=== PATIENT | male | born 1990 | race Caucasian/White ===

== ENCOUNTER 2018-10-07 18:53 | Emergency (ER) | payer OTHER ==
[2018-10-07] MEDS ORDERED: ONDANSETRON 4 MG TAB.RAPDIS PO ONE (19:17)
[2018-10-07] MEDS ORDERED: OXYCODONE-ACETAMINOPHEN 5-325 MG TABLET PO ONE (19:17)
--- NOTE | 2018-10-07 19:30 | ER Document Report ---
ED GI/ - General Chief Complaint: Testicular Pain Stated Complaint: TESTICLE PAIN/SWOLLEN Time Seen by Provider: 10/07/18 19:07 Notes: Patient is a 28-year-old male that comes to the emergency department for chief complaint of left testicular pain. He states pain started suddenly about 2 hours prior to arrival, he noticed it when he stood up from sitting on the couch, he states it is severe with position changes and is an aching pain othe rwise. He denies fever or chills, injury, nausea or vomiting. He denies abdominal pain. He denies history of the same. He denies any surgeries or daily medications. He is sexually active with his significant other, denies discharge or dysuria. TRAVEL OUTSIDE OF THE [place] IN LAST 30 DAYS: No - Related Data Allergies/Adverse Reactions: No Known Allergies Allergy (Unverified 10/07/18 18:56) Past Medical History - General Information source: Patient - Social History Smoking Status: Never Smoker Chew tobacco use (# tins/day): No Drug Abuse: None Lives with: Family Family History: Reviewed & Not Pertinent Patient has suicidal ideation: No Patient has homicidal ideation: No - Medical History Medical History: Negative Renal/ Medical History: Denies: Hx Peritoneal Dialysis Surgical Hx: Negative - Immunizations Immunizations up to date: Yes Hx Diphtheria, Pertussis, Tetanus Vaccination: Yes Review of Systems - Review of Systems Constitutional: No symptoms reported EENT: No symptoms reported Cardiovascular: No symptoms reported Respiratory: No symptoms reported Gastrointestinal: No symptoms reported Genitourinary: See HPI Male Genitourinary: See HPI Musculoskeletal: No symptoms reported Skin: No symptoms reported Hematologic/Lymphatic: No symptoms reported Neurological/Psychological: No symptoms reported Physical Exam - Vital signs Vitals: Temp Pulse Resp BP Pulse Ox 98.4 F 97 16 127/71 H 100 10/07/18 18:59 10/07/18 18:59 10/07/18 18:59 10/07/18 18:59 10/07/18 18:59 - Notes Notes: GENERAL: Alert, interacts well. No acute distress. HEAD: Normocephalic, atraumatic. EYES: Pupils equal, round, and reactive to light. Extraocular movements intact. ENT: Oral mucosa moist, tongue midline. Oropharynx unremarkable. Airway patent. Nares patent, no nasal septal hematoma, TM's intact. NECK: Full range of motion. Supple. Trachea midline. LUNGS: Clear to auscultation bilaterally, no wheezes, rales, or rhonchi. No respiratory distress. HEART: Regular rate and rhythm. No murmur ABDOMEN: Soft, non-tender. Non-distended. Bowel sounds present in all 4 quadra nts. GENITOURINARY: Tenderness over the left epididymis, no swelling to the scrotum, normal cremaster reflexes bilaterally, no hernia noted, no rash noted, no concerning abnormalities noted otherwise. RN Yudith present during exam. EXTREMITIES: Moves all 4 extremities spontaneously. No edema, normal radial and dorsalis pedis pulses bilaterally. No cyanosis. BACK: no cervical, thoracic, lumbar midline tenderness. No saddle anesthesia, normal distal neurovascular exam. NEUROLOGICAL: Alert and oriented x3. Normal speech. [cranial nerves II through XII grossly intact]. PSYCH: Normal affect, normal mood. SKIN: Warm, dry, normal turgor. No rashes or lesions noted. Course - Re-evaluation Re-evalutation: Patient's physical examination is most consistent with epididymitis. No other concerning findings. Urinalysis obtained and is unremarkable. Ultrasound shows good blood flow bilaterally, insistent with epididymitis on the left side which is consistent with patient's physical examination. I discussed the results with patient. Discussed possible bacterial infection causes versus mechanical causes, etc., after discussion decision was made to treat patient prophylactically with azithromycin and Rocephin, give accommodations for treatment of epididymitis otherwise, discussed follow-up and return precautions. Patient states understanding and agreement. After discussion patient will be contacted tonight if he is positive, otherwise patient will know he was negative. Gonorrhea and Chlamydia testing negative. - Vital Signs Vital signs: Temp Pulse Resp BP Pulse Ox 98.0 F 56 L 15 115/64 98 10/07/18 22:08 10/07/18 22:08 10/07/18 22:08 10/07/18 22:08 10/07/18 22:08 Discharge - Discharge Clinical Impression: Testicular pain, left, Epididymitis Condition: Stable Disposition: HOME, SELF-CARE Additional Instructions: Your ultrasound and workup shows epididymitis. You received initial treatment coverage, complete treatment by taking the anti- inflammatory as prescribed and wearing supportive underwear for the next few days. Symptoms should resolve with time. Follow-up with primary care. Return if you worsen including severe pain, swelling, vomiting, fever, or any other concerning or worsening symptoms. Prescriptions: Naproxen 500 mg PO BID PRN #20 tablet PRN Reason:
[2018-10-07 20:29] LABS: APPEARANCE,URINE CLEAR; BILIRUBIN,URINE NEGATIVE (NEGATIVE); COLOR,URINE YELLOW; GLUCOSE, URINE NEGATIVE (NEGATIVE); KETONES,URINE NEGATIVE (NEGATIVE); LEUKOCYTE ESTERASE,URINE NEGATIVE (NEGATIVE); NITRITE,URINE NEGATIVE (NEGATIVE); PROTEIN,URINE NEGATIVE (NEGATIVE); UROBILINOGEN,URINE NEGATIVE mg/dL (<2.0)
--- NOTE | 2018-10-07 21:04 | RADIOLOGY REPORT (SQ) ---
EXAM DESCRIPTION: US SCROTUM COMPLETED DATE/TME: 10/07/2018 19:15 CLINICAL HISTORY: 28 years, Male, left testicular pain EXAM DESCRIPTION: CLINICAL HISTORY: 28 years Male left testicular pain COMPARISON: None. TECHNIQUE: Real-time, reyna scale sonographic and duplex imaging performed to evaluate the testicles FINDINGS: Right testis measures 43 x 36 x 27 mm, left testis 47 x 31 x 24 mm. Left epididymis is hypervascular and enlarged. Right testicle is normal in size and echogenicity. Normal blood flow to the right testicle. No evidence of intratesticular mass. Left testicle is normal in size and echogenicity. Normal blood flow to the left testicle. No evidence of intratesticular mass. Epididymides are otherwise unremarkable. IMPRESSION: Probable left epididymitis.
[2018-10-07] MEDS ORDERED: LIDOCAINE 1% INJ-PF (10 MG/ML) 30 ML SDV INJ ONE (21:24)
[2018-10-07] MEDS ORDERED: CEFTRIAXONE INJ 250 MG VIAL IM ONE (21:24)
[2018-10-07] MEDS ORDERED: AZITHROMYCIN 250 MG TABLET PO ONE (21:25)
[2018-10-07 21:57] LABS: CHLAM PCR NOT DETECTED (NOT DETECT); GON PCR NOT DETECTED (NOT DETECT)
[2018-10-07 22:11] VITALS: BP 115/64
== END 2018-10-07 22:11 | disposition home or self-care (01) ==
LOC: ER 18:53
DX: N45.1 Epididymitis (principal); N50.812 Left testicular pain
CPT/HCPCS: 99284; 96372; 81001; 87491; 87591; 76870; 93976; S0119; J3490; J0696

== ENCOUNTER 2019-08-23 10:57 | Emergency (ER) | payer OTHER ==
[2019-08-23 11:17] VITALS: BP 125/69
[2019-08-23] MEDS ORDERED: IBUPROFEN 800 MG TABLET PO ONE (11:30)
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
--- NOTE | 2019-08-23 12:03 | RADIOLOGY REPORT (SQ) ---
EXAM DESCRIPTION: ELBOW LEFT OVER 2 VIEWS COMPLETED DATE/TIME: 08/23/2019 11:45 am REASON FOR STUDY: fall, left elbow pain COMPARISON: None. NUMBER OF VIEWS: Four views. TECHNIQUE: AP, lateral, and both oblique radiographic images acquired of the left elbow. LIMITATIONS: None. FINDINGS: MINERALIZATION: Normal. BONES: No acute fracture or dislocation. No worrisome bone lesions. JOINT: No effusion. SOFT TISSUES: No soft tissue swelling. No foreign body. OTHER: No other significant finding. IMPRESSION: NEGATIVE STUDY OF THE LEFT ELBOW. NO RADIOGRAPHIC EVIDENCE OF ACUTE INJURY. TECHNICAL DOCUMENTATION: JOB ID: [id number] [employer]- All Rights Reserved Reading location - IP/workstation name: [email or web address]
--- NOTE | 2019-08-23 12:29 | RADIOLOGY REPORT (SQ) ---
EXAM DESCRIPTION: HAND LEFT 3 VIEWS COMPLETED DATE/TIME: 08/23/2019 12:20 pm REASON FOR STUDY: fall injury COMPARISON: None. EXAM PARAMETERS: NUMBER OF VIEWS: Three views. TECHNIQUE: AP, lateral and oblique radiographic images acquired of the left hand. LIMITATIONS: None. FINDINGS: MINERALIZATION: Normal. BONES: No acute fracture or dislocation. No worrisome bone lesions. JOINTS: No effusions. SOFT TISSUES: No soft tissue swelling. No foreign body. OTHER: No other significant finding. IMPRESSION: NEGATIVE STUDY OF THE LEFT HAND. NO RADIOGRAPHIC EVIDENCE OF ACUTE INJURY. TECHNICAL DOCUMENTATION: JOB ID: [id number] [employer]- All Rights Reserved Reading location - IP/workstation name: [email or web address]
== END 2019-08-23 12:51 | disposition home or self-care (01) ==
LOC: ER 10:57
DX: M25.522 Pain in left elbow (principal); S60.222A Contusion of left hand, initial encounter; M79.642 Pain in left hand; M79.89 Other specified soft tissue disorders; R20.0 Anesthesia of skin; W17.89XA Other fall from one level to another, initial encounter; W22.8XXA Striking against or struck by other objects, initial encounter; Z72.0 Tobacco use

== ENCOUNTER 2019-11-14 11:49 | Emergency (ER) | payer OTHER ==
[2019-11-14] MEDS ORDERED: HYDROCODONE/ACETAMINOPHEN 5-325 MG TABLET PO ONE (13:47)
--- NOTE | 2019-11-14 13:49 | ER Document Report ---
HPI - HPI Patient complains to provider of: Back pain Time Seen by Provider: 11/14/19 13:47 Onset: Other - 4 months Onset/Duration: Worse Pain Level: 3 Context: Patient states that he has had back pain for the past 4 months. Patient states that he has been going through physical therapy for the past 3 weeks. Patient states yesterday that he had sudden onset of weakness in his legs causing him to fall. Patient states he had a similar episode today in which he had low back pain, leg weakness and fell. Patient states that his legs were numb at the time. Patient denies any recent injury. Patient denies any fever. Patient states that he will occasionally have alterations in his urine stream in which it starts and stops. Associated Symptoms: Other - Low back pain. denies: Fever Exacerbated by: Movement Relieved by: Denies Similar symptoms previously: Yes Recently seen / treated by doctor: Yes - ROS ROS below otherwise negative: Yes Systems Reviewed and Negative: Yes All other systems reviewed and negative - CONSTITUTIONAL Constitutional: DENIES: Fever - NEURO Notes: Reports brief weakness to extremities causing a fall x2 episodes - GASTROINTESTINAL Gastrointestinal: DENIES: Nausea, Patient vomiting - MUSCULOSKELETAL Musculoskeletal: REPORTS: Extremity pain, Back Pain. 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 HEAD: Atraumatic, normocephalic. EYES: sclera clear, anicteric, conjunctiva are normal. ENT: nares patent, Moist mucous membranes. NECK: Normal range of motion, supple no lymphadenopathy LUNGS: respirations unlabored HEART: Regular rate and rhythm without murmurs EXTREMITIES: Normal range of motion, no pitting or edema. No cyanosis. Gait normal, pt ambulates without difficulty BACK: Lumbar paraspinal tenderness, lower lumbar midline tenderness, no deformities or step-offs. No CVA tenderness. NEUROLOGICAL: Cranial nerves grossly intact. Normal speech, normal gait. No saddle anesthesia. PSYCH: Normal mood, normal affect. SKIN: Warm, Dry, normal turgor, no rashes or lesions noted. - INFECTION CONTROL TRAVEL OUTSIDE OF THE [place] IN LAST 30 DAYS: No Course - Re-evaluation Re-evalutation: 11/14/19 16:[address] Langley regarding patient's MRI report findings. Recommends outpatient follow-up with his primary doctor for further management at this time. No acute surgical issue at this time. Patient was given a copy of his MRI report and encouraged to see his primary doctor for referral. The patient presents with low back pain without signs of spinal cord compression, cauda equina syndrome, infection, aneurysm, or other serious etiology. The patient is neurologically intact. Given the extremely risk of these diagnoses further testing and evaluation for these possibilities does not appear to be indicated at this time. Patient has been instructed to return if the symptoms worsen or change in any way. - Vital Signs Vital signs: Temp Pulse Resp BP Pulse Ox 98.7 F 61 17 139/72 H 98 11/14/19 13:27 11/14/19 13:27 11/14/19 13:27 11/14/19 13:27 11/14/19 13:27 - Diagnostic Test Radiology reviewed: Reports reviewed Discharge - Discharge Clinical Impression: Low back pain Qualifiers: Chronicity: unspecified Back pain laterality: unspecified Sciatica presence: with sciatica Sciatica laterality: sciatica laterality unspecified Qualified Code(s): M54.40 - Lumbago with sciatica, unspecified side Degenerative disc disease Qualifiers: Spinal region: lumbar Qualified Code(s): M51.36 - Other intervertebral disc degeneration, lumbar region Condition: Stable Disposition: HOME, SELF-CARE Instructions: Ice Packs ([facility]), Low Back Pain ([facility]) Additional Instructions: Return immediately for any new or worsening symptoms Followup with your primary care provider, call tomorrow to make a followup appointment Prescriptions: Lidocaine [Lidoderm 5% (700 mg) Transdermal Patch] 1 patch TP DAILY PRN #10 adh..patch PRN Reason: Naproxen [Naprosyn 250 Nmg Tablet] 1 tab PO BID #14 tablet Methocarbamol [Robaxin 500 Mg Tablet] 500 mg PO QID PRN #40 tablet PRN Reason: Referrals: [facility] [Provider Group] - Follow up as needed
[2019-11-14 14:13] LABS: APPEARANCE,URINE CLEAR; BILIRUBIN,URINE NEGATIVE (NEGATIVE); COLOR,URINE YELLOW; GLUCOSE, URINE NEGATIVE (NEGATIVE); KETONES,URINE NEGATIVE (NEGATIVE); LEUKOCYTE ESTERASE,URINE NEGATIVE (NEGATIVE); NITRITE,URINE NEGATIVE (NEGATIVE); PROTEIN,URINE NEGATIVE (NEGATIVE); URINE SPECIFIC GRAVITY 1.011; UROBILINOGEN,URINE NEGATIVE mg/dL (<2.0)
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
[2019-11-14 17:06] VITALS: BP 138/68
== END 2019-11-14 17:07 | disposition home or self-care (01) ==
LOC: ER 11:49
DX: M54.40 Lumbago with sciatica, unspecified side (principal); M51.36 Other intervertebral disc degeneration, lumbar region; R53.1 Weakness; M62.81 Muscle weakness (generalized); M54.9 Dorsalgia, unspecified; W19.XXXA Unspecified fall, initial encounter
CPT/HCPCS: 72148; 81001; 99284

== ENCOUNTER 2020-06-07 16:58 | Emergency (ER) | payer OTHER ==
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
[2020-06-07 17:55] LABS: ABSOLUTE EOSINOPHILS # (AUTO) 0.2 10^3/uL (0.0-0.6); ABSOLUTE LYMPHOCYTES (AUTO) 3.1 10^3/uL (0.5-4.7); ABSOLUTE MONOCYTES (AUTO) 0.5 10^3/uL (0.1-1.4); ABSOLUTE NEUT (AUTO) 2.6 10^3/uL (1.7-8.2); BASOPHILS % (AUTO) 0.7 % (0-2); EOSINOPHILS % (AUTO) 3.5 % (0-6); HEMATOCRIT 43.8 % (37.9-51.0); HEMOGLOBIN 15.6 g/dL (13.5-17.0); LYMPHOCYTES % (AUTO) 47.6 % (13-45); MEAN CORPUSCULAR HEMOGLOBIN 31.4 pg (27.0-33.4); MEAN CORPUSCULAR HGB CONC 35.7 g/dL (32.0-36.0); MEAN CORPUSCULAR VOLUME 88 fl (80-97); MONOCYTES % (AUTO) 7.6 % (3-13); PLATELET COUNT 249 10^3/uL (150-450); RED BLOOD COUNT 4.98 10^6/uL (4.35-5.55); RED CELL DISTRIBUTION WIDTH 12.4 % (11.5-14.0); SEGMENTED NEUTROPHILS % (AUTO) 40.6 % (42-78); TOTAL CELLS COUNTED % (AUTO) 100 %; WHITE BLOOD COUNT 6.4 10^3/uL (4.0-10.5)
--- NOTE | 2020-06-07 17:58 | ER Document Report ---
ED General - General Chief Complaint: Chest Pain Stated Complaint: CHEST PAIN/UPPER BACK PAIN/BLURRY VISION Time Seen by Provider: 06/07/20 17:27 Mode of Arrival: Ambulatory Information source: Patient Notes: 06/07/20 17:23 - ED Nursing Note by NADIRA CARMONA Accjytohi Num: [id number] : 1990 Patient Age: 29 Pt presents to the ED for c/o chest pain. Pt reports pain to his substernal chest started approx. 1hr ago that radiates through to his back. States he feels like his back is being ripped open with associated SOB and intermittent nausea. Pt also reports some blurred vision in his L eye. Pt states he took a shoulder to the chest yesterday while playing basketball and had some slight pain in his chest afterward. Pt states he was just sitting on couch today when pain started. Pt is A&ox4, breaths e/u, NAD. 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 Pain is 10 out of 10; patient has associated shortness of breath with some nausea and lateral blurred vision in left eye. Yesterday around 1700 he w as playing basketball with a fellow who was about his same size. Patient weighs 230 pounds of solid muscle. He was going in for a basket with the ball in his hands as the other fellow leaned in with his shoulder into the man's sternum and epigastric area. Patient denies any hemoptysis denies any vomiting denies any black tarry stools. TRAVEL OUTSIDE OF THE [place] IN LAST 30 DAYS: No - HPI Onset: Just prior to arrival Onset/Duration: Sudden, Persistent, Worse Quality of pain: Achy Severity: Severe Pain Level: 4 Associated symptoms: Nausea, Shortness of breath Exacerbated by: Movement, Deep breathing Relieved by: Standing, Remaining still Similar symptoms previously: No Recently seen / treated by doctor: No - Related Data Allergies/Adverse Reactions: No Known Allergies Allergy (Unverified 10/07/18 18:56) Past Medical History - General Information source: Patient - Social History Smoking Status: Never Smoker Cigarette use (# per day): No Chew tobacco use (# tins/day): No Smoking Education Provided: No Frequency of alcohol use: Occasional Drug Abuse: None Lives with: Family Family History: Reviewed & Not Pertinent Patient has suicidal ideation: No Patient has homicidal ideation: No Renal/ Medical History: Denies: Hx Peritoneal Dialysis - Immunizations Immunizations up to date: Yes Hx Diphtheria, Pertussis, Tetanus Vaccination: Yes Review of Systems - Review of Systems Constitutional: Weakness - Another 230 pounds solid mass in basketball he went to his shoulder and hit his chest EENT: No symptoms reported Cardiovascular: See HPI, Chest pain, Orthopnea, Dyspnea Respiratory: No symptoms reported - and Gastrointestinal: Diarrhea Genitourinary: No symptoms reported Male Genitourinary: No symptoms reported Musculoskeletal: No symptoms reported Skin: No symptoms reported Hematologic/Lymphatic: No symptoms reported Neurological/Psychological: No symptoms reported Physical Exam - Vital signs Vitals: Temp Pulse Resp BP Pulse Ox 97.9 F 63 16 148/77 H 98 06/07/20 17:08 06/07/20 17:08 06/07/20 17:08 06/07/20 17:08 06/07/20 17:08 Interpretation: Normal - HEENT Head: Normocephalic - New cough, Atraumatic Eyes: Normal Pupils: PERRL Nasal: Normal Mucous membranes: Normal Pharynx: Normal - He is got Neck: Normal - Respiratory Respiratory status: No respiratory distress Chest status: Tender - Sternal chest pain on palpation Breath sounds: Normal Chest palpation: Normal - Cardiovascular Rhythm: Regular Heart sounds: Normal auscultation Murmur: No - Abdominal Inspection: Normal Distension: No distension Bowel sounds: Normal Tenderness: Nontender Organomegaly: No organomegaly - Rectal Prostate: Other - DEFERRED - Genitourinary Scrotum: Other - DEFERRED - Back Back: Normal - Extremities General upper extremity: Normal inspection General lower extremity: Normal inspection - Neurological Neuro grossly intact: Yes Cognition: Normal Orientation: AAOx4 Isai Coma Scale Eye Opening: Spontaneous Isai Coma Scale Verbal: Oriented [place] Coma Scale Motor: Obeys Commands Isai Coma Scale Total: 15 Speech: Normal Motor strength normal: LUE, RUE, LLE, RLE Sensory: Normal - Psychological Associated symptoms: Anxious - Skin Skin Temperature: Warm Skin Moisture: Dry Course - Vital Signs Vital signs: Temp Pulse Resp BP Pulse Ox 97.9 F 63 19 127/91 H 100 06/07/20 17:08 06/07/20 17:08 06/07/20 18:00 06/07/20 17:54 06/07/20 18:00 - Laboratory Result Diagrams: 06/07/20 17:36 06/07/20 17:36 Laboratory results interpreted by me: 06/07/20 17:36 Lymph % (Auto) 47.6 H Seg Neutrophils % 40.6 L - Diagnostic Test Radiology reviewed: Reports reviewed - CT of head neck and chest were negative per radiology - EKG Interpretation by Me EKG shows normal: Sinus rhythm Rate: Normal Rhythm: NSR - Patient is 62 heartbeat per minute with no ST elevation no ST depression no T wave depression no T wave elevation. Critical Care Note - Critical Care Note Comments: I spoke with Aquiles Lua at the transfer center at [facility] [phone] and she advised patient to follow-up with his eye doctor and personal doctor tomorrow. We will prepare CTs to go with him. I had advised him of his results and his labs. Discharge - Discharge Clinical Impression: Visual problems, Chest pain and back pain Contusion, chest wall Qualifiers: Encounter type: initial encounter Laterality: unspecified laterality Qualified Code(s): S20.219A - Contusion of unspecified front wall of thorax, initial encounter Condition: Good Disposition: HOME, SELF-CARE Additional Instructions: Follow-up with eye doctor and with loom starter tomorrow. Return to ER as needed. Follow-up with personal doctor as well. Also you may need follow-up with GI specialist for EGD in case a cardiac sphincter injury occurred with impact to the epigastric area. Prescriptions: Chlorzoxazone [Parafon Forte Dsc 500 Mg Tablet] 500 mg PO BID PRN #20 tablet PRN Reason:
[2020-06-07 17:59] LABS: INTERNATIONAL RATION (INR) 0.97; PROTHROMBIN TIME 13.1 SEC (11.4-15.4)
[2020-06-07 18:09] LABS: ALBUMIN 4.8 g/dL (3.5-5.0); ALKALINE PHOSPHATASE 70 U/L (38-126); ANION GAP 10 (5-19); ASPARTATE AMINO TRANSFERASE 36 U/L (17-59); BILIRUBIN,DIRECT 0.2 mg/dL (0.0-0.4); BILIRUBIN,TOTAL 0.6 mg/dL (0.2-1.3); BLOOD UREA NITROGEN 13 mg/dL (7-20); CALCIUM 9.6 mg/dL (8.4-10.2); CARBON DIOXIDE 28 mmol/L (22-30); CHLORIDE 101 mmol/L (98-107); GLUCOSE 96 mg/dL (75-110); POTASSIUM 4.6 mmol/L (3.6-5.0); TOTAL PROTEIN 7.5 g/dL (6.3-8.2)
--- NOTE | 2020-06-07 18:23 | RADIOLOGY REPORT (SQ) ---
EXAM DESCRIPTION: CHEST SINGLE VIEW IMAGES COMPLETED DATE/TIME: 06/07/2020 6:09 pm REASON FOR STUDY: cp COMPARISON: None. EXAM PARAMETERS: NUMBER OF VIEWS: One view. TECHNIQUE: Single frontal radiographic view of the chest acquired. RADIATION DOSE: NA LIMITATIONS: None. FINDINGS: LUNGS AND PLEURA: No opacities, masses or pneumothorax. No pleural effusion. MEDIASTINUM AND HILAR STRUCTURES: No masses. Contour normal. HEART AND VASCULAR STRUCTURES: Heart normal in size. Normal vasculature. BONES: No acute findings. HARDWARE: None in the chest. OTHER: No other significant finding. IMPRESSION: NO ACUTE RADIOGRAPHIC FINDING IN THE CHEST. TECHNICAL DOCUMENTATION: JOB ID: [id number] 2010 [employer]- All Rights Reserved Reading location - IP/workstation name: [email or web address]
--- NOTE | 2020-06-07 19:00 | EKG REPORT ---
SEVERITY:- NORMAL ECG - SINUS RHYTHM : Confirmed by: Annamarie Angela MD 07-Jun-2020 18:59:12
--- NOTE | 2020-06-07 19:02 | RADIOLOGY REPORT (SQ) ---
EXAM DESCRIPTION: CTA HEAD IMAGES COMPLETED DATE/TIME: 06/07/2020 6:49 pm REASON FOR STUDY: dissection COMPARISON: None. TECHNIQUE: Axial images acquired through the brain without and with intravenous contrast. Images re viewed with bone, brain and subdural windows. Additional sagittal and coronal reconstructions were g enerated. Images stored on PACS. CT angio [place] was performed. Thin section postcontrast CT images were reviewed with maxim um intensity projected images of the [place] in multiple orientations. All CT scanners at this facility use dose modulation, iterative reconstruction, and/or weight based d osing when appropriate to reduce radiation dose to as low as reasonably achievable (ALARA). [facility]: Dose Right [facility]: CareDose [facility]: Dose Right [facility]: Teradose 4D [facility]: [employer] CONTRAST TYPE AND DOSE: 69 Omnipaque 350- low osmolar. RENAL FUNCTION: None required. The patient is less than 50 years old. RADIATION DOSE: . LIMITATIONS: None. FINDINGS: VENTRICLES: Normal size and contour. CEREBRUM: No masses. No hemorrhage. No midline shift. No evidence for acute infarction. Normal gra y/white matter differentiation. No areas of low density in the white matter. CEREBELLUM: No masses. No hemorrhage. No alteration of density. No evidence for acute infarction. No enhancing lesions. EXTRA-AXIAL SPACES: No fluid collections. No enhancing lesions. ORBITS AND GLOBE: No intra- or extraconal masses. Normal contour of globe without masses. CALVARIUM: No fracture. PARANASAL SINUSES: No fluid or mucosal thickening. SOFT TISSUES: No mass or hematoma. OTHER: No other significant finding. CTA COW: [place]: The anterior, middle, posterior cerebral arteries are all patent. No evidence of a neurysm or focal stenosis. POSTERIOR CIRCULATION: The distal vertebral arteries are patent as is the basilar artery. No aneurysm . OTHER: No other significant finding. IMPRESSION: NORMAL BRAIN CT WITH AND WITHOUT CONTRAST. NO CTA EVIDENCE OF STENOSIS OR ANEURYSM OF THE [place] RESERVATION OF [place]. EVIDENCE OF ACUTE STROKE: NO. TECHNICAL DOCUMENTATION: JOB ID: [id number] Quality ID # 436: Final reports with documentation of one or more dose reduction techniques (e.g., Au tomated exposure control, adjustment of the mA and/or kV according to patient size, use of iterative reconstruction technique) 2010 [employer]- All Rights Reserved Reading location - IP/workstation name: [email or web address]
--- NOTE | 2020-06-07 19:04 | RADIOLOGY REPORT (SQ) ---
EXAM DESCRIPTION: CTA NECK IMAGES COMPLETED DATE/TIME: 06/07/2020 6:49 pm REASON FOR STUDY: left neck pain dissection COMPARISON: None. TECHNIQUE: Axial dynamic scanning technique with dynamic contrast enhancement through the extra-crane assembler nial carotid and vertebral arteries. Multiplanar reconstruction. 3-D MIPS and Volume-rendered imag es acquired at the workstation and saved to PACS. Images are reviewed in soft tissue, bone, lung w indows. All CT scanners at this facility use dose modulation, iterative reconstruction, and/or weight based d osing when appropriate to reduce radiation dose to as low as reasonably achievable (ALARA). [facility]: Dose Right [facility]: CareDose [facility]: Dose Right [facility]: Teradose 4D [facility]: Natanael Ulien CONTRAST TYPE AND DOSE: contrast/concentration: Isovue 350.00 mmol/ml; Total Contrast Delivered: 69. 0 ml; Total Saline Delivered: 75.0 ml RENAL FUNCTION: None required. The patient is less than 50 years old. LIMITATIONS: None. FINDINGS: AORTIC ARCH: Normal three-vessel origin. Bilateral subclavian arteries are patent. No d issection. RIGHT CAROTIDS: Patent common, internal and external carotid arteries without suggestion of significa nt stenosis or irregular plaque. No dissection. RIGHT VERTEBRAL: Patent. No dissection. LEFT CAROTIDS: Patent common, internal and external carotid arteries without suggestion of significan t stenosis or irregular plaque. No dissection. LEFT VERTEBRAL: Patent. No dissection. OTHER: No other significant finding. OTHER: 3-D reconstructions confirm findings. IMPRESSION: NORMAL CTA OF THE EXTRA-CRANIAL CAROTID AND VERTEBRAL ARTERIES. COMMENT: Quality ID #[id number]: Measurements of distal internal carotid diameter were used as the denomina tor for stenosis measurement. TECHNICAL DOCUMENTATION: JOB ID: [id number] Quality ID # 436: Final reports with documentation of one or more dose reduction techniques (e.g., Au tomated exposure control, adjustment of the mA and/or kV according to patient size, use of iterative reconstruction technique) 2010 [employer]- All Rights Reserved Reading location - IP/workstation name: [email or web address]
--- NOTE | 2020-06-07 19:07 | RADIOLOGY REPORT (SQ) ---
EXAM DESCRIPTION: CTA CHEST IMAGES COMPLETED DATE/TIME: 06/07/2020 6:49 pm REASON FOR STUDY: dissection COMPARISON: None. TECHNIQUE: CT scan of the chest performed using helical scanning technique with dynamic intravenous contrast injection. Images reviewed with lung, soft tissue and bone windows. Reconstructed coronal and sagittal MPR images reviewed. Additional 3 dimensional post-processing performed to develop Maximal Intensity Projection images (MS P). All images stored on PACS. All CT scanners at this facility use dose modulation, iterative reconstruction, and/or weight based d osing when appropriate to reduce radiation dose to as low as reasonably achievable (ALARA). [facility]: Dose Right [facility]: CareDose [facility]: Dose Right [facility]: Teradose 4D [facility]: [employer] CONTRAST TYPE AND DOSE: contrast/concentration: Isovue 350.00 mmol/ml; Total Contrast Delivered: 69. 0 ml; Total Saline Delivered: 75.0 ml Contrast bolus adequate for pulmonary arteries and aorta. RENAL FUNCTION: None required. The patient is less than 50 years old. RADIATION DOSE: CT Rad equipment meets quality standard of care and radiation dose reduction techniq ues were employed. CTDIvol: 29.8 - 46.3 mGy. DLP: 1214 mGy-cm. . LIMITATIONS: None. FINDINGS: LUNGS AND PLEURA: No masses, infiltrates, or pneumothorax. No pleural effusions or pleura l calcifications. AORTA AND GREAT VESSELS: No aneurysm. No dissection. HEART: No pericardial effusion. No significant coronary artery calcifications. PULMONARY ARTERIES: No emboli visualized in the main pulmonary arteries or the segmental branches. HILAR AND MEDIASTINAL STRUCTURES: No identified masses or abnormal nodes. HARDWARE: None in the chest. UPPER ABDOMEN: No significant findings. Limited exam. THYROID AND OTHER SOFT TISSUES: No masses. No adenopathy. BONES: No acute or significant finding. 3D MIPS: Confirm above findings. OTHER: No other significant finding. IMPRESSION: NORMAL CTA OF THE CHEST. NO PULMONARY EMBOLI. No dissection peer COMMENT: Quality ID # 436: Final reports with documentation of one or more dose reduction techniques (e.g., Automated exposure control, adjustment of the mA and/or kV according to patient size, use of iterative reconstruction technique) TECHNICAL DOCUMENTATION: JOB ID: [id number] 2010 [employer]- All Rights Reserved Reading location - IP/workstation name: [email or web address]
[2020-06-07] MEDS ORDERED: HYDROCODONE/ACETAMINOPHEN 5-325 MG (6 TAB/ER DISP) PO PRN (20:47)
[2020-06-07 21:02] VITALS: BP 124/83
== END 2020-06-07 21:05 | disposition home or self-care (01) ==
LOC: ER 16:58
DX: S20.219A Contusion of unspecified front wall of thorax, initial encounter (principal); W50.0XXA Accidental hit or strike by another person, initial encounter; Y93.67 Activity, basketball; R07.2 Precordial pain; R06.02 Shortness of breath; R11.0 Nausea; R53.1 Weakness
CPT/HCPCS: 36415; 70496; 70498; 71045; 71275; 80053; 84484; 85025; 85610; 93005; 93010; 99285